=== PATIENT | male | born 1985 | race Caucasian/White ===

== ENCOUNTER 2017-09-07 13:21 | Emergency (ER) | payer BC ==
[2017-09-07] MEDS ORDERED: NS 0.9% 1000 ML* 1,000 ML IV ONE (13:45)
[2017-09-07 14:46] LABS: ABS Basophils 0.1 10^3/ul (0-0.2); ABS Eosinophils 0 10^3/ul (0-0.6); ABS Lymphocytes 0.8 10^3/ul (1.0-4.8); ABS Monocytes 0.5 10^3/ul (0-0.8); ABS Neutrophils 8.7 10^3/ul (1.5-7.7); ABS Nucleated RBC 0 10^3/ul; Eosinophil % 0.3 % (0-6); Hematocrit 42 % (42-52); Hemoglobin 14.3 g/dl (14.0-18.0); Lymphocyte % 7.7 % (25-47); Mean Corpuscular HGB Conc 34 g/dl (31-36); Mean Corpuscular Hemoglobin 31 pg (27-31); Mean Corpuscular Volume 92 fL (80-94); Mean Platelet Volume 9.9 um3 (7.4-10.4); Nucleated Red Blood Cells % 0.2; Platelet Count 182 10^3/ul (150-450); Red Blood Count 4.56 10^6/ul (4.00-5.40); Red Cell Distribution Width 14 % (10.5-15); White Blood Count 10.1 10^3/ul (3.5-10.8)
--- NOTE | 2017-09-07 14:55 | ED ---
Syncope/Near Syncope - HPI Summary HPI Summary: This patient is a 32 year old M PREETI with a chief complaint of syncope this morning. Pt was found on a construction site by a coworker, not breathing and unresponsive. They called 911 and found him apneic and cyanotic. He was given a oropharyngeal airway and Narcan. The pt aroused on his own when EMS was preparing to intubate. Pt does not remember what happened. The patient rates the pain 7/10 in severity. Patient reports diarrhea, frequent CP, stress, abd pain, nausea. No FHx of cardiac problems. Pt denies any drug addiction. Pt took 2 Vicodin this morning. Pt has not had anything to eat or drink today. PMHx of EtOH addiction. Pt takes klonopin for anxiety. - History Of Current Complaint Chief Complaint: EDSyncope Time Seen by Provider: 09/07/17 13:37 Hx Obtained From: Patient Onset/Duration: Sudden Onset, Other - unknown length of time Context: Loss Of Consciousness Activity At Onset: Unknown - Allergies/Home Medications Allergies/Adverse Reactions: Allergies Allergy/AdvReac Type Severity Reaction Status Date / Time Penicillins Allergy Unknown Verified 09/07/17 13:48 Reaction Details Home Medications: Home Medications Mirtazapine TAB* [Remeron TAB*] 15 mg PO BEDTIME 09/07/17 [History Confirmed ] clonazePAM TAB(*) [KlonoPIN TAB(*)] 0.5 mg PO .FIVE TIMES DAILY PRN MDD 5 tablets 09/07/17 [History Confirmed 09/07/17] PMH/Surg Hx/FS Hx/Imm Hx Cardiovascular History: Reports: Hx Syncope Denies: Hx Angioplasty History: Denies: Hx Dialysis EENT History: Denies: Hx Deafness Infectious Disease History: No Infectious Disease History: Denies: Traveled Outside the [place] in Last 30 Days - Family History Known Family History: Negative: Cardiac Disease, Hypertension - Social History Occupation: Employed Full-time - construction Alcohol Use: Occasionally Substance Use Type: Reports: Prescribed Smoking Status (MU): Current Every Day Smoker Review of Systems Positive: Chest Pain Positive: Abdominal Pain, Diarrhea, Nausea Positive: Syncope All Other Systems Reviewed And Are Negative: Yes Physical Exam - Summary Physical Exam Summary: Appearance: Well appearing, no pain distress Skin: warm, dry, reflects adequate perfusion Head/face: normal Eyes: EOMI, NATY ENT: normal Neck: supple, non-tender Respiratory: CTA, breath sounds present, mild wheeze in the base of the right lung Cardiovascular: RRR, pulses symmetrical Abdomen: non-tender, soft Bowel Sounds: present Musculoskeletal: normal, strength/ROM intact Neuro: normal, sensory motor intact, A&Ox3 Triage Information Reviewed: Yes Vital Signs On Initial Exam: Initial Vitals Temp Pulse Resp BP Pulse Ox 98.9 F 93 16 125/86 94 09/07/17 13:25 09/07/17 13:25 09/07/17 13:25 09/07/17 13:25 09/07/17 13:25 Vital Signs Reviewed: Yes Diagnostics - Vital Signs Vital Signs Temp Pulse Resp BP Pulse Ox 09/07/17 14:00 96 17 97 09/07/17 13:53 92 11 138/84 94 09/07/17 13:50 99 15 97 09/07/17 13:25 98.9 F 93 16 125/86 94 - Laboratory Result Diagrams: 09/07/17 14:40 09/07/17 14:40 Lab Statement: Any lab studies that have been ordered have been reviewed, and results considered in the medical decision making process. - EKG 13:55 Cardiac Rate: NL - 88 bpm EKG Rhythm: Sinus Rhythm EKG Interpretation: Nml axis and intervals. ST septal leads consistent with early repolarizatio Re-Evaluation - Re-Evaluation First Eval Re-Evaluation Time: 15:22 Comment: Told pt he would need to stay a little longer. Pt said he was hungry and wanted food. Course/Dx Course Of Treatment: Patient brought in by ambulance after unresponsive episode in which she was found to be a. He required assisted respiration was given Narcan by registered land surveyor. He responded to this quickly and was back to normal mental status and arrival. The patient states that he takes Clonopin and hadn' t eaten. He also took Vicodin this morning that he had prescribed to him years ago. He denies any IV drug use or any other ingestions. He was monitored in the ER for several hours. Of note his benzo and opiate screens were negative. He is hydrated here was discharged in good condition with his mother. - Diagnoses Provider Diagnoses: Accidental overdose, Benzodiazepine (tranquilizer) overdose, Opiate overdose Discharge - Sign-Out/Discharge Documenting (check all that apply): Patient Departure - Discharge - Discharge Plan Condition: Improved Disposition: HOME Patient Education Materials: Opioid Overdose (ED), Benzodiazepine Overdose (ED) Referrals: Care [facility] [Outside] [facility] [place] [place] [facility] [Outside] - 3 Days Additional Instructions: Stay well-hydrated. Only take medications that are prescribed to. Do not use street drugs. Return if worse, palpitations, difficulty breathing, new symptoms or other concerns as discussed. - Billing Disposition and Condition Condition: IMPROVED Disposition: Home
[2017-09-07 15:09] LABS: EGFR Non-African American 96.6 (>60)
[2017-09-07 15:48] VITALS: BP 120/79
[2017-09-07 16:28] LABS: Urine Appearance Clear; Urine Blood Negative (Negative); Urine Color Yellow; Urine Ketones Negative (Negative); Urine Protein Negative (Negative); Urine Specific Gravity 1.006 (1.010-1.030); Urine Urobilinogen Negative (Negative)
== END 2017-09-07 17:35 | disposition home or self-care (01) ==
LOC: ED 13:21
DX: T40.601A Poisoning by unspecified narcotics, accidental (unintentional), initial encounter (principal); T42.4X1A Poisoning by benzodiazepines, accidental (unintentional), initial encounter; R55 Syncope and collapse; Y92.9 Unspecified place or not applicable; F41.9 Anxiety disorder, unspecified; F17.200 Nicotine dependence, unspecified, uncomplicated; Z79.899 Other long term (current) drug therapy; Z88.0 Allergy status to penicillin
CPT/HCPCS: 36415; 80053; 80307; 80329; 81003; 82550; 84484; 85025; 93005; 99283; G0480